=== PATIENT | female | born 1940 | race Caucasian/White ===

== ENCOUNTER 2017-02-20 12:38 | Emergency (ER) | payer OTHER ==
[~2017-02-20] VITALS: Ht 170.2 cm; Wt 82.9 kg
[~2017-02-20 12:38] MED LIST: GLIMEPIRIDE2 MG PO; KEFLEX500 MG PO; SIMVASTATIN20 MG PO
[2017-02-20 13:19] LABS: HEMATOCRIT 43.8 % (36.0-46.0); MCH 29.3 PG (29.0-34.0); MCHC 33.3 G/DL (30.0-36.0); MCV 87.8 FL (83-99); MEAN PLAT.VOLUME 10.4 uM^3 (9.5-12.4); PLATELET COUNT 204 K/uL (156-360); RBC DIS.WIDTH-CV 12.9 % (11.8-14.6); RBC DIS.WIDTH-SD 41.2 % (39-53); RED BLOOD COUNT 4.99 M/uL (3.80-5.20); WHITE BLOOD COUNT 11.4 K/uL (4.1-10.2)
[2017-02-20 13:27] LABS: CHLORIDE 108 mEq/L (99-109); POTASSIUM 4.4 mEq/L (3.7-5.4); SODIUM 139 mEq/L (136-147)
[2017-02-20 13:28] LABS: GLUCOSE 148 mg/dL (70-99)
[2017-02-20 13:29] LABS: PROTHROMBIN TIME 10.6 (9.2-11.2); PTT 28.8 (25-32)
[2017-02-20 13:30] LABS: ANION GAP 11 MEQ/L (2-14)
[2017-02-20] MEDS ORDERED: GLIMEPIRIDE4 MG PO (13:30)
[2017-02-20] MEDS ORDERED: CARDIZEM60 MG PO (13:31)
[2017-02-20] MEDS ORDERED: ELIQUIS5 MG PO (13:31)
[2017-02-20] MEDS ORDERED: LEVOTHYROXINE50 MCG PO (13:31)
[2017-02-20] MEDS ORDERED: LISINOPRIL5 MG PO (13:31)
[2017-02-20 13:32] LABS: GFR ESTIMATE (CALCULATED) 39 mL/min/
[2017-02-20] MEDS ORDERED: VITAMIN D32000 UNI1 PO (13:32)
[2017-02-20] MEDS ORDERED: CRAMP RELIEF PO (13:32)
[2017-02-20] MEDS ORDERED: ASPIR 8181 M1 PO (13:32)
[2017-02-20 13:33] LABS: UREA NITROGEN (BUN) 28 mg/dL (9-23)
[2017-02-20 15:36] LABS: EOSINOPHIL (%) 1.6 % (0-5); EOSINOPHIL COUNT 0.2 K/uL (0-0.3); HEMATOCRIT 45.3 % (36.0-46.0); IMMATURE GRANULOCYTE (%) 0.4 % (0.0-0.7); INSTRUMENT ABS NEUTROPHIL CT 8.2 K/uL; LYMPHOCYTE COUNT 1.9 K/uL (1.0-2.8); MCH 28.6 PG (29.0-34.0); MCHC 32.7 G/DL (30.0-36.0); MCV 87.6 FL (83-99); MEAN PLAT.VOLUME 10.2 uM^3 (9.5-12.4); MONOCYTE (%) 7.5 % (3-12); MONOCYTE COUNT 0.8 K/uL (0-0.8); NEUTROPHIL (%) 73.3 % (45-76); NEUTROPHIL COUNT 8.2 K/uL (1.8-6.4); PLATELET COUNT 208 K/uL (156-360); RBC DIS.WIDTH-CV 12.8 % (11.8-14.6); RBC DIS.WIDTH-SD 41.3 % (39-53); RED BLOOD COUNT 5.17 M/uL (3.80-5.20); WHITE BLOOD COUNT 11.1 K/uL (4.1-10.2)
[2017-02-20 16:09] VITALS: BP 154/108
== END 2017-02-20 16:10 | disposition home or self-care (01) ==
LOC: EME 12:38 → RME 12:38
PROVIDERS: Emergency Medicine; Physician Assistant Medical
DX: K92.1 Melena (principal); E11.9 Type 2 diabetes mellitus without complications; E78.5 Hyperlipidemia, unspecified; Z79.01 Long term (current) use of anticoagulants; Z91.041 Radiographic dye allergy status; Z87.891 Personal history of nicotine dependence
CPT/HCPCS: 80048; 85025; 85027; 85610; 85730; 86900; 86901; 99281; 99284

== ENCOUNTER 2018-02-10 11:49 | Day surgery (SDC) | payer OTHER ==
[~2018-02-10] VITALS: Ht 167.6 cm; Wt 81.7 kg
[~2018-02-10 11:49] MED LIST changes: +AMIODARONE HCL200 MG PO; +ASPIR 8181 M1 PO; +CARDIZEM60 MG PO; +CRAMP RELIEF PO; +ELIQUIS5 MG PO; +GLIMEPIRIDE4 MG PO; +LEVOTHYROXINE50 MCG PO; +LISINOPRIL5 MG PO; +PRESERVISION T1 EACH PO; +VITAMIN D32000 UNI1 PO
== END 2018-02-10 14:30 | disposition home or self-care (01) ==
LOC: CATH 11:49
PROVIDERS: Internal Medicine Cardiovascular Disease
DX: I48.1 Persistent atrial fibrillation (principal); I10 Essential (primary) hypertension; E78.5 Hyperlipidemia, unspecified; E11.9 Type 2 diabetes mellitus without complications; Z79.01 Long term (current) use of anticoagulants; Z79.84 Long term (current) use of oral hypoglycemic drugs
CPT/HCPCS: 82948; 93312; J2704